=== PATIENT | male | born 1945 | race Caucasian/White ===

== ENCOUNTER 2017-01-29 15:54 | Emergency (ER) | payer OTHER ==
[~2017-01-29] VITALS: Ht 167.6 cm; Wt 117.5 kg
[~2017-01-29 15:54] MED LIST: Bactrim,Septra DS 80 PO; DIOVAN HCT 11 TABLE1 PO; Diovan HCT 80/12.5 PO; ENDOCET 5-3251 EACH PO; FEOSOL325 MG PO; GLUCOPHAGE500 MG PO; LO-DOSE ASPIRIN81 M1 PO; METAGLIP 5/51 TABLET PO; METAGLIP PO; NABUMETONE750 MG PO; Relafen PO; TAMIFLU75 MG PO; TYLENOL EXTRA500 MG PO
[2017-01-29] MEDS ORDERED: TYLENOL WITH C1 EACH PO (16:59)
[2017-01-29 17:11] VITALS: BP 165/86
== END 2017-01-29 17:12 | disposition home or self-care (01) ==
LOC: EXP 15:54 → EME 15:54 → EXP 17:12
DX: S20.211A Contusion of right front wall of thorax, initial encounter (principal); S93.401A Sprain of unspecified ligament of right ankle, initial encounter; S80.02XA Contusion of left knee, initial encounter; I10 Essential (primary) hypertension; V49.00XA Driver injured in collision with unspecified motor vehicles in nontraffic accident, initial encounter; Y92.810 Car as the place of occurrence of the external cause
CPT/HCPCS: 71020; 73590; 73610; 93005; 99281; 99283